=== PATIENT | female | born 1960 | race African-American/Black ===

== ENCOUNTER 2017-03-19 05:07 | Emergency (ER) | payer BC ==
[2017-03-19] MEDS: DOXYCYCLINE HYCLATE 100 MG TABLET PO (07:30)
== END 2017-03-19 07:34 | disposition home or self-care (01) ==
LOC: ER 05:07
DX: J18.9 Pneumonia, unspecified organism (principal); E11.9 Type 2 diabetes mellitus without complications; Z88.2 Allergy status to sulfonamides; Z88.6 Allergy status to analgesic agent; Z88.1 Allergy status to other antibiotic agents; Z88.8 Allergy status to other drugs, medicaments and biological substances
CPT/HCPCS: 71046; 99284-25

== ENCOUNTER 2020-09-15 15:52 | Inpatient (IN) | payer BC ==
[~2020-09-15] VITALS: Ht 160 cm; Wt 91.2 kg
[~2020-09-15 15:52] MED LIST: DOXY100C2 PO
[2020-09-15 16:42] LABS: BASO % 1 % (0-3); EOS # 0.3 x10^3/uL (0.0-0.7); EOS % 6 % (0-3); HEMATOCRIT 28.6 % (36.0-47.0); HEMOGLOBIN 9.8 g/dL (12.0-15.5); LYMPH # 1.6 x10^3/uL (1.0-4.8); LYMPH % 26 % (24-48); MEAN CORPUSCULAR HEMOGLOBIN 28 pg (25-35); MEAN CORPUSCULAR HGB CONC 34 g/dL (31-37); MEAN CORPUSCULAR VOLUME 82 fL (79-100); MONO # 0.4 x10^3/uL (0.0-1.1); MONO % 7 % (0-9); NEUT # 3.8 x10^3/uL (1.8-7.7); NEUT % 61 % (31-73); PLATELET COUNT 311 x10^3/uL (140-400); RED BLOOD COUNT 3.51 x10^6/uL (3.50-5.40); RED CELL DISTRIBUTION WIDTH 15.5 % (11.5-14.5); WHITE BLOOD COUNT 6.2 x10^3/uL (4.0-11.0)
--- NOTE | 2020-09-15 16:48 | ED.ADGEN ---
Past Medical History Past Medical History: Diabetes-Type II Past Surgical History: No Surgical History Smoking Status: Never Smoker Alcohol Use: None Drug Use: None General Adult EDM: Chief Complaint: ABNORMAL LABS HPI: HPI: Patient is a 60 year old female, accompanied by her , who presents to the emergency department with reports of abnormal labs. Patient states she was notified by her primary care doctor that her kidneys were only functioning at 7% and she needed to go to the ER for further evaluation. Patient denies any chest pain, palpitations, dizziness, syncope, abdominal pain, nausea, vomiting, diarrhea, body aches, fatigue, back pain, rash, dysuria, hematuria, or increased urinary frequency. Patient states she has not been urinating as much but she states she has been staying home so she has not been drinking as much fluid. She currently denies any complaints or concerns. She currently denies any pain. Patient states that her doctor faxed over her labs that were drawn on 08 September. Review of Systems: Review of Systems: Complete ROS is negative unless otherwise noted in HPI. Current Medications: Allergies: Allergies: Allergies Coded Allergies Type Severity Reaction Last Updated Verified aspirin Allergy Severe throat swelling 09/15/20 Yes Sulfa (Sulfonamide Antibiotics) Allergy Intermediate rash 09/15/20 Yes levofloxacin Allergy Intermediate rash 09/15/20 Yes aluminum hydroxide Adverse Reaction Intermediate stomach cramping, irritation 09/15/20 Yes calcium carbonate Adverse Reaction Intermediate stomach cramping 09/15/20 Yes lisinopril Adverse Reaction Intermediate cough 09/15/20 Yes magnesium Adverse Reaction Intermediate abd cramping 09/15/20 Yes magnesium carbonate Adverse Reaction Intermediate abd cramping 09/15/20 Yes simethicone Adverse Reaction Intermediate abd cramping 09/15/20 Yes Physical Exam: PE: See Above Constitutional: Well developed, well nourished, no acute distress, non-toxic appearance, obese. [] HENT: Normocephalic, atraumatic, bilateral external ears normal, nose normal. [] Eyes: PERRLA, EOMI, conjunctiva normal, no discharge. [] Neck: Normal range of motion, no stridor. [] Cardiovascular:Heart rate regular rhythm Lungs & Thorax: Respirations even and unlabored, no retractions, no respiratory distress Abdomen: soft, no tenderness, no palpable mass, no rebound tenderness, no guarding Back: No CVA tenderness Skin: Warm, dry, no erythema, no rash. [] Extremities: No cyanosis, ROM intact, no edema. [] Neurologic: Alert and oriented X 3, normal motor, normal sensory, no focal deficits noted. [] Psychologic: Affect normal, judgement normal, mood normal. [] Current Patient Data: Labs: Laboratory Tests Test 09/15/20 16:30 White Blood Count 6.2 x10^3/uL (4.0-11.0) Red Blood Count 3.51 x10^6/uL (3.50-5.40) Hemoglobin 9.8 g/dL (12.0-15.5) L Hematocrit 28.6 % (36.0-47.0) L Mean Corpuscular Volume 82 fL (79-100) Mean Corpuscular Hemoglobin 28 pg (25-35) Mean Corpuscular Hemoglobin Concent 34 g/dL (31-37) Red Cell Distribution Width 15.5 % (11.5-14.5) H Platelet Count 311 x10^3/uL (140-400) Neutrophils (%) (Auto) 61 % (31-73) Lymphocytes (%) (Auto) 26 % (24-48) Monocytes (%) (Auto) 7 % (0-9) Eosinophils (%) (Auto) 6 % (0-3) H Basophils (%) (Auto) 1 % (0-3) Neutrophils # (Auto) 3.8 x10^3/uL (1.8-7.7) Lymphocytes # (Auto) 1.6 x10^3/uL (1.0-4.8) Monocytes # (Auto) 0.4 x10^3/uL (0.0-1.1) Eosinophils # (Auto) 0.3 x10^3/uL (0.0-0.7) Basophils # (Auto) 0.0 x10^3/uL (0.0-0.2) Sodium Level 139 mmol/L (136-145) Potassium Level 5.2 mmol/L (3.5-5.1) H Chloride Level 108 mmol/L (98-107) H Carbon Dioxide Level 21 mmol/L (21-32) Anion Gap 10 (6-14) Blood Urea Nitrogen 52 mg/dL (7-20) H Creatinine 6.4 mg/dL (0.6-1.0) H Estimated GFR (Cockcroft-Gault) 8.0 BUN/Creatinine Ratio 8 (6-20) Glucose Level 117 mg/dL (70-99) H Calcium Level 9.3 mg/dL (8.5-10.1) Magnesium Level 2.3 mg/dL (1.8-2.4) Total Bilirubin 0.6 mg/dL (0.2-1.0) Aspartate Amino Transferase (AST) 12 U/L (15-37) L Alanine Aminotransferase (ALT) 22 U/L (14-59) Alkaline Phosphatase 132 U/L (46-116) H Creatine Kinase 82 U/L (26-192) Creatine Kinase MB (Mass) 1.0 ng/mL (0.0-3.6) Creatine Kinase MB Relative Index 1.2 % (0-4) Troponin I Quantitative < 0.017 ng/mL (0.000-0.055) Total Protein 7.5 g/dL (6.4-8.2) Albumin 3.5 g/dL (3.4-5.0) Albumin/Globulin Ratio 0.9 (1.0-1.7) L Lipase 376 U/L (73-393) Laboratory Tests 09/15/20 16:30 Laboratory Tests 09/15/20 16:30 Vital Signs: Vital Signs Date Time Temp Pulse Resp B/P (MAP) Pulse Ox O2 Delivery O2 Flow Rate FiO2 09/15/20 16:06 99.1 91 18 139/82 (100) 100 Room Air 99.1 EKG: EK-sinus rhythm with leftward axis, rate 87, no STEMI read by Dr. Magaña [] Heart Score: C/O Chest Pain: No Radiology/Procedures: Radiology/Procedures: PROCEDURE: CHEST AP ONLY EXAMINATION: Chest radiograph. VIEWS: Single view COMPARISON: 03/19/2017 INDICATION:60 years, Female, chest pain. FINDINGS: Normal cardiomediastinal silhouette. No focal consolidation. No pleural effusion or pneumothorax. No acute osseous process. IMPRESSION: No acute cardiopulmonary process. Electronically signed by: Samson Novak MD (09/15/2020 5:15 PM) [facility] [] Course & Med Decision Making: Course & Med Decision Making Pertinent Labs and Imaging studies reviewed. (See chart for details) 180-spoke with Dr. Cannon who is the admitting physician, and care was assumed following discussion of patient. Will admit patient for acute on chronic renal failure. Patient's vital signs stable_. Patient remains afebrile, appears nontoxic, respirations even and unlabored. Patient will be admitted to the medical floor. Patient's case and plan of care also discussed with Dr. Magaña [] Carlos Disclaimer: Carlos Disclaimer: This electronic medical record was generated, in whole or in part, using a voice recognition dictation system. Departure Departure Impression: Primary Impression: Acute on chronic renal failure Disposition: ADMITTED INPATIENT Admitting Physician: FRANCISCA (Kassandra) Condition: STABLE Referrals: KILLIAN BLACKMON (PCP) Attending Signature Attending Signature I have reviewed the PA/CODE CLERK's note and plan of care. I was available for consultation as needed during the patient's visit in the emergency department. I agree with the clinical impression, plan, and disposition. Problem Qualifiers Primary Impression: Acute on chronic renal failure Acute renal failure type: unspecified Chronic kidney disease stage: unspecified stage Qualified Codes: N17.9 - Acute kidney failure, unspecified; N18.9 - Chronic kidney disease, unspecified SIRI WANG APRN Sep 15, 2020 16:48 PASCUAL MAGAÑA DO Sep 15, 2020 18:55
[2020-09-15 16:57] LABS: CALCIUM 9.3 mg/dL (8.5-10.1); CREATININE 6.4 mg/dL (0.6-1.0); POTASSIUM 5.2 mmol/L (3.5-5.1)
[2020-09-15 17:03] LABS: ALBUMIN 3.5 g/dL (3.4-5.0); ALBUMIN/GLOBULIN RATIO 0.9 (1.0-1.7); MAGNESIUM 2.3 mg/dL (1.8-2.4); TOTAL BILIRUBIN 0.6 mg/dL (0.2-1.0); TOTAL PROTEIN 7.5 g/dL (6.4-8.2)
--- NOTE | 2020-09-15 17:18 | RAD ---
EXAMINATION: Chest radiograph. VIEWS: Single view COMPARISON: 03/19/2017 INDICATION:60 years, Female, chest pain. FINDINGS: Normal cardiomediastinal silhouette. No focal consolidation. No pleural effusion or pneumothorax. No acute osseous process. IMPRESSION: No acute cardiopulmonary process. Electronically signed by: Samson Novak MD (09/15/2020 5:15 PM) [facility]
--- NOTE | 2020-09-15 17:31 | EKG ---
[facility] [address] [place] [address] Test Date: 2020-09-15 Test Time: 16:23:05 Pat Name: CHERRY PLATA Department: Room: Gender: F Imaging Analyst: : 1960 Requested By: SIRI WANG Order Number: [id number] Reading MD: Measurements Intervals [place] Rate: 87 P: 31 CA: 164 QRS: -11 QRSD: 74 T: 42 QT: 352 QTc: 424 Interpretive Statements SINUS RHYTHM LEFTWARD AXIS OTHERWISE NORMAL ECG RI6.02 No previous ECG available for comparison
[2020-09-15] MEDS ORDERED: IV NORMAL SALINE 1000ML BAG 1,000 ML IV ONE (18:15)
[2020-09-15 20:22] LABS: BILIRUBIN,URINE NEGATIVE (NEG); CLARITY,URINE CLEAR; COLOR,URINE YELLOW; NITRITE,URINE NEGATIVE (NEG); PH,URINE 6.5 (<5.0-8.0); PROTEIN,URINE >=300 mg/dL (NEG-TRACE); UROBILINOGEN,URINE 0.2 mg/dL (0.2 mg/dL)
[2020-09-15 20:27] LABS: BACTERIA,URINE MODERATE /HPF (0-FEW); RBC,URINE 0 /HPF (0-2); WBC,URINE 20-40 /HPF (0-4)
[2020-09-15 23:00] VITALS: BP 154/78
[2020-09-15] MEDS ORDERED: ALBU2.5V8 IH (23:35)
[2020-09-15] MEDS ORDERED: CETI10TA16 PO (23:35)
[2020-09-15] MEDS ORDERED: LOSA100T14 PO (23:35)
[2020-09-15] MEDS ORDERED: SITA50TA PO (23:35)
[2020-09-15] MEDS ORDERED: AMLO-187 PO (23:35)
[2020-09-15] MEDS ORDERED: ATOR20TA58 PO (23:35)
[2020-09-16] MEDS ORDERED: ALBUTEROL SULFATE 2.5 MG/3 ML NEBU. INH PRN
[2020-09-16 03:00] VITALS: BP 133/79
[2020-09-16 07:00] VITALS: BP 161/92
--- NOTE | 2020-09-16 08:55 | PDOC1 ---
History and Physical Date of Service: DOS: DATE: 09/16/20 TIME: 08:46 Chief Complaint: Chief Complain: Abnormal labs History of Present Illness: HPI: 60 year old female, accompanied by her , who presents to the emergency department with reports of abnormal labs. Patient states she was notified by her primary care doctor that her kidneys were only functioning at 7% and she needed to go to the ER for further evaluation. Patient denies any chest pain, palpitations, dizziness, syncope, abdominal pain, nausea, vomiting, diarrhea, body aches, fatigue, back pain, rash, dysuria, hematuria, or increased urinary frequency. Patient states she has not been urinating as much but she states she has been staying home so she has not been drinking as much fluid. She currently denies any complaints or concerns. She currently denies any pain. Patient states that her doctor faxed over her labs that were drawn on 08 September. Pateitn states she knows she has retinopathy. She knew her kidney fxn was bad but did not know that it had worsened Past Medical/Surgical History: PMH/PSH: Past Medical History: Diabetes-Type II Past Surgical History: No Surgical History Allergies: Allergies: Coded Allergies: aspirin (Verified Allergy, Severe, throat swelling, 09/15/20) Sulfa (Sulfonamide Antibiotics) (Verified Allergy, Intermediate, rash, 09/15/20) levofloxacin (Verified Allergy, Intermediate, rash, 09/15/20) aluminum hydroxide (Verified Adverse Reaction, Intermediate, stomach cramping, irritation, 09/15/20) calcium carbonate (Verified Adverse Reaction, Intermediate, stomach cramping, 09/15/20) lisinopril (Verified Adverse Reaction, Intermediate, cough, 09/15/20) magnesium (Verified Adverse Reaction, Intermediate, abd cramping, 09/15/20) magnesium carbonate (Verified Adverse Reaction, Intermediate, abd cramping, 09/15/20) simethicone (Verified Adverse Reaction, Intermediate, abd cramping, 09/15/20) Family History: Family History: Reviewed with no relevant findings Social History: Social History: Smoking Status: Never Smoker Alcohol Use: None Drug Use: None Current Medications: Current Medications Current Medications Sodium Chloride 1,000 ml @ 1,000 mls/hr 1X ONCE IV Last administered on 09/15/20at 18:23; Start 09/15/20 at 18:15; Stop 09/15/20 at 19:14; Status DC Albuterol Sulfate (Ventolin Neb Soln) 2.5 mg PRN Q4HRS PRN INH wheezing; Start 09/16/20 at 00:00 Amlodipine Besylate (Norvasc) 10 mg DAILY PO ; Start 09/16/20 at 09:00 Atorvastatin Calcium (Lipitor) 20 mg HS PO ; Start 09/16/20 at 21:00 Cetirizine HCl (ZyrTEC) 10 mg DAILY PO ; Start 09/16/20 at 09:00 Losartan Potassium (Cozaar) 100 mg DAILY PO ; Start 09/16/20 at 09:00 Linagliptin (Tradjenta) 5 mg DAILY PO ; Start 09/16/20 at 09:00 Active Scripts Active Doxycycline Hyclate 100 Mg Capsule 1 Cap PO BID Reported Januvia (Sitagliptin Phosphate) 50 Mg Tablet 25 Mg PO DAILY Losartan Potassium 100 Mg Tablet 100 Mg PO DAILY Cetirizine Hcl 10 Mg Tablet 10 Mg PO DAILY Atorvastatin Calcium 20 Mg Tablet 20 Mg PO HS Amlodipine Besylate 10 Mg Tablet 10 Mg PO DAILY Proair Hfa Inhaler (Albuterol Sulfate) 8.5 Gm Hfa.aer.ad 2 Puff IH PRN Q4-6HRS PRN 21 Days ROS: Review of Systems Review of System REVIEW OF SYSTEMS: GENERAL: Denies weakness SKIN: No bruising, hair changes or rashes. EYES: No blurred, double or loss of vision. NOSE AND THROAT: No history of nosebleeds, hoarseness or sore throat. HEART: No history of palpitations, chest pain or shortness of breath on exertion. LUNGS: Denies cough, hemoptysis, wheezing or shortness of breath. GASTROINTESTINAL: Denies changes in appetite, nausea, vomiting, diarrhea or constipation. GENITOURINARY: No history of frequency, urgency, hesitancy or nocturia. NEUROLOGIC: Denies history of numbness, tingling, or tremor. PSYCHIATRIC: No history of panic, anxiety or depression. ENDOCRINE: No history of heat or cold intolerance, polyuria or polydipsia. EXTREMITIES: Denies joint pain, pain on walking or stiffness. Physical Exam: Vital Signs: Vital Signs Date Time Temp Pulse Resp B/P (MAP) Pulse Ox O2 Delivery O2 Flow Rate FiO2 09/16/20 03:00 98.1 86 18 133/79 (97) 100 Room Air 98.1 Physcial Exam: GEN: No apparent distress. Alert and oriented HEENT: Normal cephalic, atraumatic, external auditory canals are patent EYES: Extraocular muscles are intact, pupil are equally round and reactive to light and accommodation MUSCULOSKELETAL: Well developed , well nourished, good range of motion ENDOCRINE: No thyromegaly was palpated LYMPHATICS: No cervical chain or axillary nodes were noted HEMATOPOIETIC: No bruising NECK: Supple, no JVD, no thyromegaly was noted LUNGS: Clear to auscultation in all lung malik without rhonchi or wheezing HEART: RRR, S!, S2 present. Peripheral pulses intact, no obvious murmurs noted ABDOMEN: Soft, nontender. Positive bowel sounds, no organomegaly, normal bowel sounds EXTREMITIES: Without clubbing, cyanosis, or edema. Pedal pulses intact. Negative Homans sign NEUROLOGIC: Normal speech and tone. A&O x 3, moves all extremities, no obvious focal deficits PSYCHIATRIC: Normal affect, normal mood. Stable SKIN: No ulcerations or rashes, good skin turgor, no jaundice VASCULAR: Good capillary refill, neurovascular bundle appears to be intact Labs: Labs: Laboratory Tests Test 09/15/20 16:30 09/15/20 20:10 09/15/20 21:42 09/16/20 08:08 White Blood Count 6.2 x10^3/uL (4.0-11.0) Red Blood Count 3.51 x10^6/uL (3.50-5.40) Hemoglobin 9.8 g/dL (12.0-15.5) Hematocrit 28.6 % (36.0-47.0) Mean Corpuscular Volume 82 fL (79-100) Mean Corpuscular Hemoglobin 28 pg (25-35) Mean Corpuscular Hemoglobin Concent 34 g/dL (31-37) Red Cell Distribution Width 15.5 % (11.5-14.5) Platelet Count 311 x10^3/uL (140-400) Neutrophils (%) (Auto) 61 % (31-73) Lymphocytes (%) (Auto) 26 % (24-48) Monocytes (%) (Auto) 7 % (0-9) Eosinophils (%) (Auto) 6 % (0-3) Basophils (%) (Auto) 1 % (0-3) Neutrophils # (Auto) 3.8 x10^3/uL (1.8-7.7) Lymphocytes # (Auto) 1.6 x10^3/uL (1.0-4.8) Monocytes # (Auto) 0.4 x10^3/uL (0.0-1.1) Eosinophils # (Auto) 0.3 x10^3/uL (0.0-0.7) Basophils # (Auto) 0.0 x10^3/uL (0.0-0.2) Sodium Level 139 mmol/L (136-145) Potassium Level 5.2 mmol/L (3.5-5.1) Chloride Level 108 mmol/L (98-107) Carbon Dioxide Level 21 mmol/L (21-32) Anion Gap 10 (6-14) Blood Urea Nitrogen 52 mg/dL (7-20) Creatinine 6.4 mg/dL (0.6-1.0) Estimated GFR (Cockcroft-Gault) 8.0 BUN/Creatinine Ratio 8 (6-20) Glucose Level 117 mg/dL (70-99) Calcium Level 9.3 mg/dL (8.5-10.1) Magnesium Level 2.3 mg/dL (1.8-2.4) Total Bilirubin 0.6 mg/dL (0.2-1.0) Aspartate Amino Transf (AST/SGOT) 12 U/L (15-37) Alanine Aminotransferase (ALT/SGPT) 22 U/L (14-59) Alkaline Phosphatase 132 U/L (46-116) Creatine Kinase 82 U/L (26-192) Creatine Kinase MB (Mass) 1.0 ng/mL (0.0-3.6) Creatine Kinase MB Relative Index 1.2 % (0-4) Troponin I Quantitative < 0.017 ng/mL (0.000-0.055) Total Protein 7.5 g/dL (6.4-8.2) Albumin 3.5 g/dL (3.4-5.0) Albumin/Globulin Ratio 0.9 (1.0-1.7) Lipase 376 U/L (73-393) Urine Collection Type Unknown Urine Color Yellow Urine Clarity Clear Urine pH 6.5 (<5.0-8.0) Urine Specific [place] 1.010 (1.000-1.030) Urine Protein >=300 mg/dL (NEG-TRACE) Urine Glucose (UA) Negative mg/dL (NEG) Urine Ketones (Stick) Negative mg/dL (NEG) Urine Blood Trace (NEG) Urine Nitrite Negative (NEG) Urine Bilirubin Negative (NEG) Urine Urobilinogen Dipstick 0.2 mg/dL (0.2 mg/dL) Urine Leukocyte Esterase Small (NEG) Urine RBC 0 /HPF (0-2) Urine WBC 20-40 /HPF (0-4) Urine Squamous Epithelial Cells Mod /LPF Urine Bacteria Moderate /HPF (0-FEW) Glucose (Fingerstick) 78 mg/dL (70-99) 86 mg/dL (70-99) Laboratory Tests Test 09/15/20 16:30 09/15/20 20:10 09/15/20 21:42 09/16/20 08:08 White Blood Count 6.2 x10^3/uL (4.0-11.0) Red Blood Count 3.51 x10^6/uL (3.50-5.40) Hemoglobin 9.8 g/dL (12.0-15.5) Hematocrit 28.6 % (36.0-47.0) Mean Corpuscular Volume 82 fL (79-100) Mean Corpuscular Hemoglobin 28 pg (25-35) Mean Corpuscular Hemoglobin Concent 34 g/dL (31-37) Red Cell Distribution Width 15.5 % (11.5-14.5) Platelet Count 311 x10^3/uL (140-400) Neutrophils (%) (Auto) 61 % (31-73) Lymphocytes (%) (Auto) 26 % (24-48) Monocytes (%) (Auto) 7 % (0-9) Eosinophils (%) (Auto) 6 % (0-3) Basophils (%) (Auto) 1 % (0-3) Neutrophils # (Auto) 3.8 x10^3/uL (1.8-7.7) Lymphocytes # (Auto) 1.6 x10^3/uL (1.0-4.8) Monocytes # (Auto) 0.4 x10^3/uL (0.0-1.1) Eosinophils # (Auto) 0.3 x10^3/uL (0.0-0.7) Basophils # (Auto) 0.0 x10^3/uL (0.0-0.2) Sodium Level 139 mmol/L (136-145) Potassium Level 5.2 mmol/L (3.5-5.1) Chloride Level 108 mmol/L (98-107) Carbon Dioxide Level 21 mmol/L (21-32) Anion Gap 10 (6-14) Blood Urea Nitrogen 52 mg/dL (7-20) Creatinine 6.4 mg/dL (0.6-1.0) Estimated GFR (Cockcroft-Gault) 8.0 BUN/Creatinine Ratio 8 (6-20) Glucose Level 117 mg/dL (70-99) Calcium Level 9.3 mg/dL (8.5-10.1) Magnesium Level 2.3 mg/dL (1.8-2.4) Total Bilirubin 0.6 mg/dL (0.2-1.0) Aspartate Amino Transf (AST/SGOT) 12 U/L (15-37) Alanine Aminotransferase (ALT/SGPT) 22 U/L (14-59) Alkaline Phosphatase 132 U/L (46-116) Creatine Kinase 82 U/L (26-192) Creatine Kinase MB (Mass) 1.0 ng/mL (0.0-3.6) Creatine Kinase MB Relative Index 1.2 % (0-4) Troponin I Quantitative < 0.017 ng/mL (0.000-0.055) Total Protein 7.5 g/dL (6.4-8.2) Albumin 3.5 g/dL (3.4-5.0) Albumin/Globulin Ratio 0.9 (1.0-1.7) Lipase 376 U/L (73-393) Urine Collection Type Unknown Urine Color Yellow Urine Clarity Clear Urine pH 6.5 (<5.0-8.0) Urine Specific [place] 1.010 (1.000-1.030) Urine Protein >=300 mg/dL (NEG-TRACE) Urine Glucose (UA) Negative mg/dL (NEG) Urine Ketones (Stick) Negative mg/dL (NEG) Urine Blood Trace (NEG) Urine Nitrite Negative (NEG) Urine Bilirubin Negative (NEG) Urine Urobilinogen Dipstick 0.2 mg/dL (0.2 mg/dL) Urine Leukocyte Esterase Small (NEG) Urine RBC 0 /HPF (0-2) Urine WBC 20-40 /HPF (0-4) Urine Squamous Epithelial Cells Mod /LPF Urine Bacteria Moderate /HPF (0-FEW) Glucose (Fingerstick) 78 mg/dL (70-99) 86 mg/dL (70-99) Images: Images CXR Impression: 1. No acute cardiopulmonary process. Assessment/Plan Assessment/Plan TONNY due to vasomotor nephropathy, possible diabetic nephropathy Mild hyperkalemia History of diabetes mellitus type 2 Admit to medicine for further management Nephrology consult Pending renal ultrasound Pending urine studies Avoid nephrotoxic agents, such as losartan in this case Heparin for DVT prophylaxis ADA diet Full code Discussed with RN and SW Disposition Inpateitn management as above Surrogate decision maker is In addition to E/M visit, advanced care planning was done: A total time of 20 minutes was spent from 1130 to 1150 face to face in discussion with the patient and husaband regarding their goals of care, and CODE status Justifications for Admission Other Justification KILEY ERWIN MD Sep 16, 2020 08:55
[2020-09-16] MEDS: CETIRIZINE HCL 10 MG TABLET. PO SCH (08:56)
[2020-09-16] MEDS: LINAGLIPTIN 5 MG TABLET PO SCH (08:56)
[2020-09-16] MEDS ORDERED: DOCUSATE SODIUM 100 MG CAPSULE. PO PRN (09:00)
[2020-09-16] MEDS ORDERED: LOSARTAN POTASSIUM 50 MG TABLET. PO SCH (09:00)
[2020-09-16] MEDS ORDERED: PROCHLORPERAZINE 10 MG/2 ML VIAL. IV PRN (09:00)
[2020-09-16] MEDS ORDERED: SENNOSIDES 8.6 MG TABLET PO PRN (09:00)
[2020-09-16] MEDS ORDERED: DEXTROSE 50% 25 GM / 50ML DISP.SYRIN. IV PRN (09:00)
[2020-09-16] MEDS ORDERED: ACETAMINOPHEN 325 MG TABLET. PO PRN (09:00)
[2020-09-16] MEDS ORDERED: ONDANSETRON PF 4 MG/2 ML VIAL. IVP PRN (09:00)
[2020-09-16] MEDS ORDERED: THIAMINE INJ 100 MG in IV DEXTROSE 5% 50 ML IV SCH (10:00)
[2020-09-16 11:00] VITALS: BP 171/100
[2020-09-16] MEDS: INSULIN LISPRO 300 UNITS/3 ML VIAL. SQ SCH ×2 (11:54→17:00)
[2020-09-16] MEDS ORDERED: CARB15DR3 EACHEYE (12:44)
[2020-09-16] MEDS ORDERED: REFRESH EYE DROPS OU PRN (13:00)
[2020-09-16] MEDS ORDERED: POLYVINYL ALCOHOL 1.4% OPHTH SOLUTION 15ML BOTTLE. OU PRN (13:00)
[2020-09-16 15:00] VITALS: BP 163/88
--- NOTE | 2020-09-16 15:32 | PDOC2 ---
CONSULT Date of Consult Date of Consult DATE: 09/16/20 TIME: 15:32 Reason for Consult Reason for Consult: TONNY on CKD Source Source: Chart review, Patient History of Present Illness Reason for Visit: 60 year old aa female, who presents to the emergency department with reports of abnormal labs. Patient states she was notified by her primary care doctor that her kidneys were only functioning at 7% and she needed to go to the ER for further evaluation. Patient denies any chest pain, palpitations, dizziness, syncope, abdominal pain, nausea, vomiting, diarrhea, body aches, fatigue, back pain, rash, dysuria, hematuria, or increased urinary frequency. Patient states she has not been urinating as much but she states she has been staying home so she has not been drinking as much fluid. She currently denies any complaints or concerns. She currently denies any pain. Patient states that her doctor faxed over her labs that were drawn on 08 September. Patient states she knows she has retinopathy. She knew her kidney fxn was bad but did not know that it had worsened. Past Medical History Past Medical History PMH/PSH: Past Medical History: Diabetes-Type II Past Surgical History: No Surgical History , Family History Family History Reviewed with no relevant findings Social History Social History Smoking Status: Never Smoker Alcohol Use: None Drug Use: None Current Problem List Problem List Problems Medical Problems: (1) Acute on chronic renal failure Status: Acute Current Medications Current Medications Current Medications Sodium Chloride 1,000 ml @ 1,000 mls/hr 1X ONCE IV Last administered on 09/15/20at 18:23; Start 09/15/20 at 18:15; Stop 09/15/20 at 19:14; Status DC Albuterol Sulfate (Ventolin Neb Soln) 2.5 mg PRN Q4HRS PRN INH wheezing; Start 09/16/20 at 00:00 Amlodipine Besylate (Norvasc) 10 mg DAILY PO Last administered on 09/16/20at 08:57; Start 09/16/20 at 09:00 Atorvastatin Calcium (Lipitor) 20 mg HS PO ; Start 09/16/20 at 21:00 Cetirizine HCl (ZyrTEC) 10 mg DAILY PO Last administered on 09/16/20at 08:56; Start 09/16/20 at 09:00 Losartan Potassium (Cozaar) 100 mg DAILY PO Last administered on 09/16/20at 08:57; Start 09/16/20 at 09:00 Linagliptin (Tradjenta) 5 mg DAILY PO Last administered on 09/16/20at 08:56; Start 09/16/20 at 09:00 Sennosides (Senna) 17.2 mg PRN BID PRN PO CONSTIPATION; Start 09/16/20 at 09:00 Docusate Sodium (Colace) 100 mg PRN DAILY PRN PO HARD STOOLS; Start 09/16/20 at 09:00 Thiamine HCl 100 mg/Dextrose 51 ml @ 102 mls/hr DAILY IV Last administered on 09/16/20at 09:42; Start 09/16/20 at 10:00 Ondansetron HCl (Zofran) 4 mg PRN Q6HRS PRN IVP NAUSEA/VOMITING; Start 09/16/20 at 09:00 Insulin Human Lispro (HumaLOG) 0-7 UNITS TIDWMEALS SQ ; Start 09/16/20 at 12:00 Dextrose (Dextrose 50%-Water Syringe) 12.5 gm PRN Q15MIN PRN IV SEE COMMENTS; Start 09/16/20 at 09:00 Acetaminophen (Tylenol) 650 mg PRN Q4HRS PRN PO TEMP OVER 100.4F OR MILD PAIN; Start 09/16/20 at 09:00 Prochlorperazine Edisylate (Compazine) 10 mg PRN Q6HRS PRN IV NAUSEA/VOMITING, 2ND CHOICE; Start 09/16/20 at 09:00 Glycerin/ Hypromellose/ Polyethylene (Artificial Tears) 1 drop DAILY PRN OU DRY EYES; Start 09/16/20 at 13:00; Stop 09/16/20 at 12:53; Status DC Non-Formulary Medication (Refresh Eye Drops) 1 ea PRN DAILY PRN OU DRY EYES; Start 09/16/20 at 13:00 Active Scripts Active Doxycycline Hyclate 100 Mg Capsule 1 Cap PO BID Reported Refresh Optive Eye Drops (Carboxymethylcellulos/Glycerin) 15 Ml Drops 1 Drop EACHEYE DAILY Januvia (Sitagliptin Phosphate) 50 Mg Tablet 25 Mg PO DAILY Losartan Potassium 100 Mg Tablet 100 Mg PO DAILY Cetirizine Hcl 10 Mg Tablet 10 Mg PO DAILY Atorvastatin Calcium 20 Mg Tablet 20 Mg PO HS Amlodipine Besylate 10 Mg Tablet 10 Mg PO DAILY Proair Hfa Inhaler (Albuterol Sulfate) 8.5 Gm Hfa.aer.ad 2 Puff IH PRN Q4-6HRS PRN 21 Days Allergies Allergies: Coded Allergies: aspirin (Verified Allergy, Severe, throat swelling, 09/15/20) Sulfa (Sulfonamide Antibiotics) (Verified Allergy, Intermediate, rash, 09/15/20) levofloxacin (Verified Allergy, Intermediate, rash, 09/15/20) aluminum hydroxide (Verified Adverse Reaction, Intermediate, stomach cram ping, irritation, 09/15/20) calcium carbonate (Verified Adverse Reaction, Intermediate, stomach cramping, 09/15/20) lisinopril (Verified Adverse Reaction, Intermediate, cough, 09/15/20) magnesium (Verified Adverse Reaction, Intermediate, abd cramping, 09/15/20) magnesium carbonate (Verified Adverse Reaction, Intermediate, abd cramping, 09/15/20) simethicone (Verified Adverse Reaction, Intermediate, abd cramping, 09/15/20) ROS Review of System As per HPI, rest of the ROS IS NEGATIVE Physical Exam Physical Exam GEN: No apparent distress. Alert and oriented HEENT: Normal cephalic, atraumatic, external auditory canals are patent NECK: Supple, no JVD, LUNGS: Clear to auscultation HEART: RRR, S!, S2 present. no rub ABDOMEN: Soft, nontender. Positive bowel sounds, no organomegaly, normal bowel sounds EXTREMITIES: Without clubbing, cyanosis, or edema. NEUROLOGIC: Normal speech and tone. A&O x 3, moves all extremities, no obvious focal deficits,has No Asterexis PSYCHIATRIC: Normal affect, normal mood. Stable SKIN: No ulcerations or rashes, good skin turgor, no jaundice No Lovell, No CVA or SP tenderness Vital Signs Vital Signs Date Time Temp Pulse Resp B/P (MAP) Pulse Ox O2 Delivery O2 Flow Rate FiO2 09/16/20 11:00 98.2 78 18 171/100 (123) 99 Room Air 98.2 Assessment & Plan TONNY - ATN / Dehydration , baseline renal function Unknown to me. No labs ordered this morning . Recd Losartan this morning (ordered by Primary) Check Renal US, Supportive care, IVF- maintain hydration, dc Losartan , Strict I/O , avoid Nephrotoxins.Obtain records feom PCP office. Discussed with RN CKD - Pt reports she was told by PCP about abnormal Kidney function for at least past few years, Nephrology not consuted until approx 1 week back 2/2 decline in renal function Denies UTI's or hematuria . No Hx of use of NSAID's. No new med changes HyperKalemia - Mild POA- No labs done this morning DM-? Hx of DR + Labs Labs Laboratory Tests Test 09/15/20 16:30 09/15/20 20:10 09/15/20 21:42 09/16/20 08:08 White Blood Count 6.2 x10^3/uL (4.0-11.0) Red Blood Count 3.51 x10^6/uL (3.50-5.40) Hemoglobin 9.8 g/dL (12.0-15.5) Hematocrit 28.6 % (36.0-47.0) Mean Corpuscular Volume 82 fL (79-100) Mean Corpuscular Hemoglobin 28 pg (25-35) Mean Corpuscular Hemoglobin Concent 34 g/dL (31-37) Red Cell Distribution Width 15.5 % (11.5-14.5) Platelet Count 311 x10^3/uL (140-400) Neutrophils (%) (Auto) 61 % (31-73) Lymphocytes (%) (Auto) 26 % (24-48) Monocytes (%) (Auto) 7 % (0-9) Eosinophils (%) (Auto) 6 % (0-3) Basophils (%) (Auto) 1 % (0-3) Neutrophils # (Auto) 3.8 x10^3/uL (1.8-7.7) Lymphocytes # (Auto) 1.6 x10^3/uL (1.0-4.8) Monocytes # (Auto) 0.4 x10^3/uL (0.0-1.1) Eosinophils # (Auto) 0.3 x10^3/uL (0.0-0.7) Basophils # (Auto) 0.0 x10^3/uL (0.0-0.2) Sodium Level 139 mmol/L (136-145) Potassium Level 5.2 mmol/L (3.5-5.1) Chloride Level 108 mmol/L (98-107) Carbon Dioxide Level 21 mmol/L (21-32) Anion Gap 10 (6-14) Blood Urea Nitrogen 52 mg/dL (7-20) Creatinine 6.4 mg/dL (0.6-1.0) Estimated GFR (Cockcroft-Gault) 8.0 BUN/Creatinine Ratio 8 (6-20) Glucose Level 117 mg/dL (70-99) Calcium Level 9.3 mg/dL (8.5-10.1) Magnesium Level 2.3 mg/dL (1.8-2.4) Total Bilirubin 0.6 mg/dL (0.2-1.0) Aspartate Amino Transf (AST/SGOT) 12 U/L (15-37) Alanine Aminotransferase (ALT/SGPT) 22 U/L (14-59) Alkaline Phosphatase 132 U/L (46-116) Creatine Kinase 82 U/L (26-192) Creatine Kinase MB (Mass) 1.0 ng/mL (0.0-3.6) Creatine Kinase MB Relative Index 1.2 % (0-4) Troponin I Quantitative < 0.017 ng/mL (0.000-0.055) Total Protein 7.5 g/dL (6.4-8.2) Albumin 3.5 g/dL (3.4-5.0) Albumin/Globulin Ratio 0.9 (1.0-1.7) Lipase 376 U/L (73-393) Urine Collection Type Unknown Urine Color Yellow Urine Clarity Clear Urine pH 6.5 (<5.0-8.0) Urine Specific [place] 1.010 (1.000-1.030) Urine Protein >=300 mg/dL (NEG-TRACE) Urine Glucose (UA) Negative mg/dL (NEG) Urine Ketones (Stick) Negative mg/dL (NEG) Urine Blood Trace (NEG) Urine Nitrite Negative (NEG) Urine Bilirubin Negative (NEG) Urine Urobilinogen Dipstick 0.2 mg/dL (0.2 mg/dL) Urine Leukocyte Esterase Small (NEG) Urine RBC 0 /HPF (0-2) Urine WBC 20-40 /HPF (0-4) Urine Squamous Epithelial Cells Mod /LPF Urine Bacteria Moderate /HPF (0-FEW) Glucose (Fingerstick) 78 mg/dL (70-99) 86 mg/dL (70-99) Test 09/16/20 11:39 Glucose (Fingerstick) 121 mg/dL (70-99) Laboratory Tests Test 09/15/20 16:30 09/15/20 20:10 09/15/20 21:42 09/16/20 08:08 White Blood Count 6.2 x10^3/uL (4.0-11.0) Red Blood Count 3.51 x10^6/uL (3.50-5.40) Hemoglobin 9.8 g/dL (12.0-15.5) Hematocrit 28.6 % (36.0-47.0) Mean Corpuscular Volume 82 fL (79-100) Mean Corpuscular Hemoglobin 28 pg (25-35) Mean Corpuscular Hemoglobin Concent 34 g/dL (31-37) Red Cell Distribution Width 15.5 % (11.5-14.5) Platelet Count 311 x10^3/uL (140-400) Neutrophils (%) (Auto) 61 % (31-73) Lymphocytes (%) (Auto) 26 % (24-48) Monocytes (%) (Auto) 7 % (0-9) Eosinophils (%) (Auto) 6 % (0-3) Basophils (%) (Auto) 1 % (0-3) Neutrophils # (Auto) 3.8 x10^3/uL (1.8-7.7) Lymphocytes # (Auto) 1.6 x10^3/uL (1.0-4.8) Monocytes # (Auto) 0.4 x10^3/uL (0.0-1.1) Eosinophils # (Auto) 0.3 x10^3/uL (0.0-0.7) Basophils # (Auto) 0.0 x10^3/uL (0.0-0.2) Sodium Level 139 mmol/L (136-145) Potassium Level 5.2 mmol/L (3.5-5.1) Chloride Level 108 mmol/L (98-107) Carbon Dioxide Level 21 mmol/L (21-32) Anion Gap 10 (6-14) Blood Urea Nitrogen 52 mg/dL (7-20) Creatinine 6.4 mg/dL (0.6-1.0) Estimated GFR (Cockcroft-Gault) 8.0 BUN/Creatinine Ratio 8 (6-20) Glucose Level 117 mg/dL (70-99) Calcium Level 9.3 mg/dL (8.5-10.1) Magnesium Level 2.3 mg/dL (1.8-2.4) Total Bilirubin 0.6 mg/dL (0.2-1.0) Aspartate Amino Transf (AST/SGOT) 12 U/L (15-37) Alanine Aminotransferase (ALT/SGPT) 22 U/L (14-59) Alkaline Phosphatase 132 U/L (46-116) Creatine Kinase 82 U/L (26-192) Creatine Kinase MB (Mass) 1.0 ng/mL (0.0-3.6) Creatine Kinase MB Relative Index 1.2 % (0-4) Troponin I Quantitative < 0.017 ng/mL (0.000-0.055) Total Protein 7.5 g/dL (6.4-8.2) Albumin 3.5 g/dL (3.4-5.0) Albumin/Globulin Ratio 0.9 (1.0-1.7) Lipase 376 U/L (73-393) Urine Collection Type Unknown Urine Color Yellow Urine Clarity Clear Urine pH 6.5 (<5.0-8.0) Urine Specific [place] 1.010 (1.000-1.030) Urine Protein >=300 mg/dL (NEG-TRACE) Urine Glucose (UA) Negative mg/dL (NEG) Urine Ketones (Stick) Negative mg/dL (NEG) Urine Blood Trace (NEG) Urine Nitrite Negative (NEG) Urine Bilirubin Negative (NEG) Urine Urobilinogen Dipstick 0.2 mg/dL (0.2 mg/dL) Urine Leukocyte Esterase Small (NEG) Urine RBC 0 /HPF (0-2) Urine WBC 20-40 /HPF (0-4) Urine Squamous Epithelial Cells Mod /LPF Urine Bacteria Moderate /HPF (0-FEW) Glucose (Fingerstick) 78 mg/dL (70-99) 86 mg/dL (70-99) Test 09/16/20 11:39 Glucose (Fingerstick) 121 mg/dL (70-99) Review All relevant outside records, renal labs, imaging studies, telemetry/EKG's were reviewed. LIDA FRIEDMAN MD Sep 16, 2020 15:32
[2020-09-16] MEDS: IV NORMAL SALINE 1000ML BAG 1,000 ML IV SCH ×2 (15:43→22:23)
[2020-09-16 18:44] LABS: CREATININE,RANDOM URINE 66.6 mg/dL (Not Establ.)
[2020-09-16 19:00] VITALS: BP 152/91
[2020-09-16] MEDS: ATORVASTATIN CALCIUM 20 MG TABLET PO SCH (22:02)
[2020-09-16 23:00] VITALS: BP 159/90
[2020-09-17 05:02] LABS: BASO % 1 % (0-3); EOS # 0.3 x10^3/uL (0.0-0.7); EOS % 5 % (0-3); HEMATOCRIT 26.4 % (36.0-47.0); LYMPH # 2.5 x10^3/uL (1.0-4.8); LYMPH % 34 % (24-48); MEAN CORPUSCULAR HEMOGLOBIN 28 pg (25-35); MEAN CORPUSCULAR HGB CONC 34 g/dL (31-37); MEAN CORPUSCULAR VOLUME 83 fL (79-100); MONO # 0.5 x10^3/uL (0.0-1.1); MONO % 7 % (0-9); NEUT % 55 % (31-73); PLATELET COUNT 286 x10^3/uL (140-400); RED CELL DISTRIBUTION WIDTH 15.5 % (11.5-14.5); WHITE BLOOD COUNT 7.4 x10^3/uL (4.0-11.0)
[2020-09-17 05:43] LABS: CALCIUM 8.6 mg/dL (8.5-10.1); CREATININE 5.6 mg/dL (0.6-1.0); GFR 9.3; MAGNESIUM 2.1 mg/dL (1.8-2.4); PHOSPHORUS 4.6 mg/dL (2.6-4.7); POTASSIUM 5.2 mmol/L (3.5-5.1)
[2020-09-17 07:00] VITALS: BP 134/82
[2020-09-17] MEDS: INSULIN LISPRO 300 UNITS/3 ML VIAL. SQ SCH ×3 (08:00→16:56)
--- NOTE | 2020-09-17 08:32 | RAD ---
EXAM: RENAL ULTRASOUND CLINICAL HISTORY: Acute renal failure COMPARISON: None available. TECHNIQUE: Ultrasound examination of the bilateral kidneys and urinary bladder was performed. FINDINGS: The right kidney measures 9.9 x 6.3 x 4.8 cm. The left kidney measures 10.2 x 4.5 x 1 cm. The kidneys are mildly echogenic. No cortical thinning. No hydronephrosis. There is a 1.8 cm simple right renal cyst and a 1.7 cm complicated left renal cyst. The urinary bladder is unremarkable. Mild hepatic stea tosis noted. IMPRESSION: 1. No hydronephrosis. 2. Echogenic appearance of the kidneys suggesting medical renal disease. 3. Bilateral renal cysts. 4. Hepatic steatosis. Electronically signed by: Marci Auguste MD (09/17/2020 8:30 AM) [id number]
[2020-09-17] MEDS: LINAGLIPTIN 5 MG TABLET PO SCH (08:34)
[2020-09-17] MEDS: IV 1/2 NORMAL SALINE 1,000 ML IV SCH ×2 (08:34→22:17)
[2020-09-17] MEDS: CETIRIZINE HCL 10 MG TABLET. PO SCH (08:34)
[2020-09-17 11:00] VITALS: BP 157/85
--- NOTE | 2020-09-17 12:03 | PDOC ---
DATE OF SERVICE DATE: 09/17/20 TIME: 12:02 SUBJECTIVE ROS No complaints, stable No N/V or SOB OBJECTIVE Vital Signs Vital Signs Date Time Temp Pulse Resp B/P (MAP) Pulse Ox O2 Delivery O2 Flow Rate FiO2 09/17/20 08:34 81 134/82 09/17/20 08:00 Room Air 09/17/20 07:00 98.4 18 97 98.4 I & 0 Intake and Output 09/17/20 07:00 Intake Total 360 ml Output Total 500 ml Balance -140 ml Intake Oral 360 ml Output Urine Total 500 ml # Voids 4 PHYSICAL EXAM Physical Exam GEN: No apparent distress. Alert and oriented HEENT: Normal cephalic, atraumatic, external auditory canals are patent NECK: Supple, no JVD, LUNGS: Clear to auscultation HEART: RRR, S!, S2 present. no rub ABDOMEN: Soft, nontender. Positive bowel sounds, no organomegaly, normal bowel sounds EXTREMITIES: Without clubbing, cyanosis, or edema. NEUROLOGIC: Normal speech and tone. A&O x 3, moves all extremities, no obvious focal deficits,has No Asterexis PSYCHIATRIC: Normal affect, normal mood. Stable SKIN: No ulcerations or rashes, good skin turgor, no jaundice No Lovell, No CVA or SP tenderness Vital Signs DIAGNOSIS/ASSESSMENT Assessment & Plan TONNY - ATN / , baseline renal function Unknown , UA No casts/hematuria , No UTI Renal US reviewed , Supportive care, IVF- maintain hydration, Strict I/O , avoid Nephrotoxins.Obtain records from PCP office. Discussed with RN CKD - Pt reports she was told by PCP about abnormal Kidney function for at least past few years, Nephrology not consuted until approx 1 week back 2/2 decline in renal function Denies UTI's or hematuria . No Hx of use of NSAID's. No new med changes US - mildly echogenic. No cortical thinning. No hydronephrosis. The urinary bladder is unremarkable . Renal Cysts - 1.8 cm simple right renal cyst and a 1.7 cm complicated left renal cyst.No FU recommended per Radiologist . Recommend Urology consult as OP as reported as complicated cyst HyperKalemia - Mild DM-? Hx of DR + COMMENT/RELEVANT DATA Meds Current Medications Medications (Trade) Dose Ordered Sig/Mauro Start Time Stop Time Status Last Admin Dose Admin Acetaminophen (Tylenol) 650 mg PRN Q4HRS PRN 09/16/20 09:00 Albuterol Sulfate (Ventolin Neb Soln) 2.5 mg PRN Q4HRS PRN 09/16/20 00:00 Amlodipine Besylate (Norvasc) 10 mg DAILY 09/16/20 09:00 09/17/20 08:34 10 MG Atorvastatin Calcium (Lipitor) 20 mg HS 09/16/20 21:00 09/16/20 22:02 20 MG Cetirizine HCl (ZyrTEC) 10 mg DAILY 09/16/20 09:00 09/17/20 08:34 10 MG Dextrose (Dextrose 50%-Water Syringe) 12.5 gm PRN Q15MIN PRN 09/16/20 09:00 Docusate Sodium (Colace) 100 mg PRN DAILY PRN 09/16/20 09:00 Glycerin/ Hypromellose/ Polyethylene (Artificial Tears) 1 drop DAILY PRN 09/16/20 13:00 09/16/20 12:53 DC Insulin Human Lispro (HumaLOG) 0-7 UNITS TIDWMEALS 09/16/20 12:00 Linagliptin (Tradjenta) 5 mg DAILY 09/16/20 09:00 09/17/20 08:34 5 MG Losartan Potassium (Cozaar) 100 mg DAILY 09/16/20 09:00 09/16/20 15:33 DC 09/16/20 08:57 100 MG Non-Formulary Medication (Refresh Eye Drops) 1 ea PRN DAILY PRN 09/16/20 13:00 Ondansetron HCl (Zofran) 4 mg PRN Q6HRS PRN 09/16/20 09:00 09/16/20 17:31 4 MG Prochlorperazine Edisylate (Compazine) 10 mg PRN Q6HRS PRN 09/16/20 09:00 Sennosides (Senna) 17.2 mg PRN BID PRN 09/16/20 09:00 Sodium Chloride 1,000 ml @ 75 mls/hr [id number] 09/17/20 08:00 09/17/20 08:34 75 MLS/HR Thiamine HCl 100 mg/Dextrose 51 ml @ 102 mls/hr DAILY 09/16/20 10:00 09/17/20 07:58 DC 09/16/20 09:42 102 MLS/HR Lab Laboratory Tests Test 09/16/20 17:09 09/16/20 18:15 09/16/20 20:14 09/17/20 04:30 Glucose (Fingerstick) 92 mg/dL (70-99) 150 mg/dL (70-99) Urine Random Creatinine 66.6 mg/dL (Not Establ.) Urine Random Total Protein 272.5 mg/dL (Not Establ.) White Blood Count 7.4 x10^3/uL (4.0-11.0) Red Blood Count 3.20 x10^6/uL (3.50-5.40) Hemoglobin 9.0 g/dL (12.0-15.5) Hematocrit 26.4 % (36.0-47.0) Mean Corpuscular Volume 83 fL (79-100) Mean Corpuscular Hemoglobin 28 pg (25-35) Mean Corpuscular Hemoglobin Concent 34 g/dL (31-37) Red Cell Distribution Width 15.5 % (11.5-14.5) Platelet Count 286 x10^3/uL (140-400) Neutrophils (%) (Auto) 55 % (31-73) Lymphocytes (%) (Auto) 34 % (24-48) Monocytes (%) (Auto) 7 % (0-9) Eosinophils (%) (Auto) 5 % (0-3) Basophils (%) (Auto) 1 % (0-3) Neutrophils # (Auto) 4.0 x10^3/uL (1.8-7.7) Lymphocytes # (Auto) 2.5 x10^3/uL (1.0-4.8) Monocytes # (Auto) 0.5 x10^3/uL (0.0-1.1) Eosinophils # (Auto) 0.3 x10^3/uL (0.0-0.7) Basophils # (Auto) 0.0 x10^3/uL (0.0-0.2) Sodium Level 142 mmol/L (136-145) Potassium Level 5.2 mmol/L (3.5-5.1) Chloride Level 112 mmol/L (98-107) Carbon Dioxide Level 18 mmol/L (21-32) Anion Gap 12 (6-14) Blood Urea Nitrogen 46 mg/dL (7-20) Creatinine 5.6 mg/dL (0.6-1.0) Estimated GFR (Cockcroft-Gault) 9.3 Glucose Level 99 mg/dL (70-99) Calcium Level 8.6 mg/dL (8.5-10.1) Phosphorus Level 4.6 mg/dL (2.6-4.7) Magnesium Level 2.1 mg/dL (1.8-2.4) Test 09/17/20 07:40 09/17/20 11:55 Glucose (Fingerstick) 90 mg/dL (70-99) 112 mg/dL (70-99) Results All relevant outside records, renal labs, imaging studies, telemetry/EKG's were reviewed. Justicifation of Admission Dx: Justifications for Admission: Justification of Admission Dx: N/A LIDA FRIEDMAN MD Sep 17, 2020 12:02
--- NOTE | 2020-09-17 14:38 | PDOC ---
[employer] PROGRESS NOTE Date of Service DOS: DATE: 09/17/20 TIME: 14:37 Chief Complaint Chief Complaint Assessment/Plan TONNY due to vasomotor nephropathy, possible diabetic nephropathy Mild hyperkalemia History of diabetes mellitus type 2 Bilateral renal cyst Nephrology consult Pending renal ultrasound Pending urine studies Avoid nephrotoxic agents, such as losartan in this case Heparin for DVT prophylaxis ADA diet Full code Discussed with RN and SW Disposition inpatient management as above Surrogate decision maker is History of Present Illness History of Present Illness 60 year old female, accompanied by her , who presents to the emergency department with reports of abnormal labs. Patient states she was notified by her primary care doctor that her kidneys were only functioning at 7% and she needed to go to the ER for further evaluation. Patient denies any chest pain, palpitations, dizziness, syncope, abdominal pain, nausea, vomiting, diarrhea, body aches, fatigue, back pain, rash, dysuria, hematuria, or increased urinary frequency. Patient states she has not been urinating as much but she states she has been staying home so she has not been drinking as much fluid. She currently denies any complaints or concerns. She currently denies any pain. Patient states that her doctor faxed over her labs that were drawn on 08 September. Radhan states she knows she has retinopathy. She knew her kidney fxn was bad but did not know that it had worsened 09/17/2020 No major events overnight. Patient's creatinine somewhat improved. No complaints today. No concerns from nursing. Patient's chart, labs, images were reviewed and discussed with RN Vitals/I&O Vitals/I&O: Vital Signs Date Time Temp Pulse Resp B/P (MAP) Pulse Ox O2 Delivery O2 Flow Rate FiO2 09/17/20 11:00 98.3 88 18 157/85 (109) 99 Room Air 98.3 I & O 09/16/20 09/16/20 09/17/20 15:00 23:00 07:00 Intake Total 120 ml 240 ml Output Total 500 ml Balance 120 ml -260 ml Physical Exam General: Alert, Oriented X3, Cooperative Heart: Regular rate Lungs: Clear Abdomen: Normal bowel sounds Extremities: No clubbing, No edema Skin: No significant lesion Labs Labs: Laboratory Tests Test 09/16/20 17:09 09/16/20 18:15 09/16/20 20:14 09/17/20 04:30 Glucose (Fingerstick) 92 mg/dL (70-99) 150 mg/dL (70-99) Urine Random Creatinine 66.6 mg/dL (Not Establ.) Urine Random Total Protein 272.5 mg/dL (Not Establ.) White Blood Count 7.4 x10^3/uL (4.0-11.0) Red Blood Count 3.20 x10^6/uL (3.50-5.40) Hemoglobin 9.0 g/dL (12.0-15.5) Hematocrit 26.4 % (36.0-47.0) Mean Corpuscular Volume 83 fL (79-100) Mean Corpuscular Hemoglobin 28 pg (25-35) Mean Corpuscular Hemoglobin Concent 34 g/dL (31-37) Red Cell Distribution Width 15.5 % (11.5-14.5) Platelet Count 286 x10^3/uL (140-400) Neutrophils (%) (Auto) 55 % (31-73) Lymphocytes (%) (Auto) 34 % (24-48) Monocytes (%) (Auto) 7 % (0-9) Eosinophils (%) (Auto) 5 % (0-3) Basophils (%) (Auto) 1 % (0-3) Neutrophils # (Auto) 4.0 x10^3/uL (1.8-7.7) Lymphocytes # (Auto) 2.5 x10^3/uL (1.0-4.8) Monocytes # (Auto) 0.5 x10^3/uL (0.0-1.1) Eosinophils # (Auto) 0.3 x10^3/uL (0.0-0.7) Basophils # (Auto) 0.0 x10^3/uL (0.0-0.2) Sodium Level 142 mmol/L (136-145) Potassium Level 5.2 mmol/L (3.5-5.1) Chloride Level 112 mmol/L (98-107) Carbon Dioxide Level 18 mmol/L (21-32) Anion Gap 12 (6-14) Blood Urea Nitrogen 46 mg/dL (7-20) Creatinine 5.6 mg/dL (0.6-1.0) Estimated GFR (Cockcroft-Gault) 9.3 Glucose Level 99 mg/dL (70-99) Calcium Level 8.6 mg/dL (8.5-10.1) Phosphorus Level 4.6 mg/dL (2.6-4.7) Magnesium Level 2.1 mg/dL (1.8-2.4) Test 09/17/20 07:40 09/17/20 11:55 Glucose (Fingerstick) 90 mg/dL (70-99) 112 mg/dL (70-99) Assessment and Plan Assessmemt and Plan Problems Medical Problems: (1) Acute on chronic renal failure Status: Acute Comment Review of Relevant I have reviewed the following items gabbie (where applicable) has been applied. Medications: Current Medications Medications (Trade) Dose Ordered Sig/Mauro Route PRN Reason Start Time Stop Time Status Last Admin Dose Admin Atorvastatin Calcium (Lipitor) 20 mg HS PO 09/16/20 21:00 09/16/20 22:02 Sodium Chloride 1,000 ml @ 100 mls/hr Q10H IV 09/16/20 15:45 09/17/20 07:58 DC 09/16/20 22:23 Sodium Chloride 1,000 ml @ 75 mls/hr [id number] IV 09/17/20 08:00 09/17/20 08:34 Justifications for Admission Other Justification Acute renal failure KILEY ERWIN MD Sep 17, 2020 14:38
[2020-09-17 15:00] VITALS: BP 133/77
[2020-09-17 19:00] VITALS: BP 156/90
[2020-09-17] MEDS: ATORVASTATIN CALCIUM 20 MG TABLET PO SCH (22:15)
[2020-09-17 23:00] VITALS: BP 102/80
[2020-09-18 01:11] LABS: HEMOGLOBIN A1C 5.1 % (4.8-5.6)
[2020-09-18 07:30] VITALS: BP 151/86
[2020-09-18] MEDS: INSULIN LISPRO 300 UNITS/3 ML VIAL. SQ SCH ×3 (07:58→17:00)
[2020-09-18 08:22] LABS: CALCIUM 8.9 mg/dL (8.5-10.1); CREATININE 5.3 mg/dL (0.6-1.0); GFR 9.9; POTASSIUM 4.9 mmol/L (3.5-5.1)
[2020-09-18] MEDS: CETIRIZINE HCL 10 MG TABLET. PO SCH (08:49)
[2020-09-18] MEDS: LINAGLIPTIN 5 MG TABLET PO SCH (08:49)
--- NOTE | 2020-09-18 09:39 | PDOC ---
DATE OF SERVICE DATE: 09/18/20 TIME: 09:38 SUBJECTIVE ROS No complaints, stable No N/V or SOB OBJECTIVE Vital Signs Vital Signs Date Time Temp Pulse Resp B/P (MAP) Pulse Ox O2 Delivery O2 Flow Rate FiO2 09/18/20 08:59 79 151/86 09/18/20 08:00 Room Air 09/18/20 07:30 98.5 18 97 98.5 I & 0 Intake and Output 09/18/20 07:00 Output Total 4050 ml Balance -4050 ml Output Urine Total 4050 ml PHYSICAL EXAM Physical Exam GEN: No apparent distress. Alert and oriented HEENT: Normal cephalic, atraumatic, external auditory canals are patent NECK: Supple, no JVD, LUNGS: Clear to auscultation HEART: RRR, S!, S2 present. no rub ABDOMEN: Soft, nontender. Positive bowel sounds, no organomegaly, normal bowel sounds EXTREMITIES: Without clubbing, cyanosis, or edema. NEUROLOGIC: Normal speech and tone. A&O x 3, moves all extremities, no obvious focal deficits,has No Asterexis PSYCHIATRIC: Normal affect, normal mood. Stable SKIN: No ulcerations or rashes, good skin turgor, no jaundice No Lovell, No CVA or SP tenderness DIAGNOSIS/ASSESSMENT Assessment & Plan TONNY - ATN / , baseline renal function Unknown Renal US reviewed , Supportive care, IVF- maintain hydration, Strict I/O , avoid Nephrotoxins.Obtain records from PCP office. Discussed with RN CKD - Pt reports she was told by PCP about abnormal Kidney function for at least past few years, Nephrology not consuted until approx 1 week back 2/2 decline in renal function Denies UTI's or hematuria . No Hx of use of NSAID's. No new med changes US - mildly echogenic. No cortical thinning. No hydronephrosis. The urinary bladder is unremarkable . 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 Recommend Urology consult as OP as reported as complicated cyst HyperKalemia - Mild DM-? Hx of DR + COMMENT/RELEVANT DATA Meds Current Medications Medications (Trade) Dose Ordered Sig/Mauro Start Time Stop Time Status Last Admin Dose Admin Acetaminophen (Tylenol) 650 mg PRN Q4HRS PRN 09/16/20 09:00 Albuterol Sulfate (Ventolin Neb Soln) 2.5 mg PRN Q4HRS PRN 09/16/20 00:00 Amlodipine Besylate (Norvasc) 10 mg DAILY 09/16/20 09:00 09/18/20 08:59 10 MG Atorvastatin Calcium (Lipitor) 20 mg HS 09/16/20 21:00 09/17/20 22:15 20 MG Cetirizine HCl (ZyrTEC) 10 mg DAILY 09/16/20 09:00 09/18/20 08:49 10 MG Dextrose (Dextrose 50%-Water Syringe) 12.5 gm PRN Q15MIN PRN 09/16/20 09:00 Docusate Sodium (Colace) 100 mg PRN DAILY PRN 09/16/20 09:00 Glycerin/ Hypromellose/ Polyethylene (Artificial Tears) 1 drop DAILY PRN 09/16/20 13:00 09/16/20 12:53 DC Insulin Human Lispro (HumaLOG) 0-7 UNITS TIDWMEALS 09/16/20 12:00 Linagliptin (Tradjenta) 5 mg DAILY 09/16/20 09:00 09/18/20 08:49 5 MG Losartan Potassium (Cozaar) 100 mg DAILY 09/16/20 09:00 09/16/20 15:33 DC 09/16/20 08:57 100 MG Non-Formulary Medication (Refresh Eye Drops) 1 ea PRN DAILY PRN 09/16/20 13:00 Ondansetron HCl (Zofran) 4 mg PRN Q6HRS PRN 09/16/20 09:00 09/16/20 17:31 4 MG Prochlorperazine Edisylate (Compazine) 10 mg PRN Q6HRS PRN 09/16/20 09:00 Sennosides (Senna) 17.2 mg PRN BID PRN 09/16/20 09:00 Sodium Chloride 1,000 ml @ 75 mls/hr [id number] 09/17/20 08:00 09/17/20 22:17 75 MLS/HR Thiamine HCl 100 mg/Dextrose 51 ml @ 102 mls/hr DAILY 09/16/20 10:00 09/17/20 07:58 DC 09/16/20 09:42 102 MLS/HR Lab Laboratory Tests Test 09/17/20 11:55 09/17/20 16:53 09/17/20 20:19 09/18/20 07:35 Glucose (Fingerstick) 112 mg/dL (70-99) 91 mg/dL (70-99) 139 mg/dL (70-99) Sodium Level 143 mmol/L (136-145) Potassium Level 4.9 mmol/L (3.5-5.1) Chloride Level 112 mmol/L (98-107) Carbon Dioxide Level 19 mmol/L (21-32) Anion Gap 12 (6-14) Blood Urea Nitrogen 45 mg/dL (7-20) Creatinine 5.3 mg/dL (0.6-1.0) Estimated GFR (Cockcroft-Gault) 9.9 Glucose Level 87 mg/dL (70-99) Calcium Level 8.9 mg/dL (8.5-10.1) Test 09/18/20 07:51 Glucose (Fingerstick) 94 mg/dL (70-99) Results All relevant outside records, renal labs, imaging studies, telemetry/EKG's were reviewed. Justicifation of Admission Dx: Justifications for Admission: Justification of Admission Dx: N/A LIDA FRIEDMAN MD Sep 18, 2020 09:39
[2020-09-18 11:36] VITALS: BP 139/88
[2020-09-18] MEDS: IV 1/2 NORMAL SALINE 1,000 ML IV SCH ×2 (11:55→22:04)
[2020-09-18 15:17] VITALS: BP 155/81
--- NOTE | 2020-09-18 16:14 | PDOC ---
[facility] PROGRESS NOTE Date of Service DOS: DATE: 09/18/20 TIME: 16:12 Chief Complaint Chief Complaint Assessment/Plan TONNY due to vasomotor nephropathy, possible diabetic nephropathy Mild hyperkalemia History of diabetes mellitus type 2 Bilateral renal cyst Nephrology consult Pending renal ultrasound Pending urine studies Avoid nephrotoxic agents, such as losartan in this case Heparin for DVT prophylaxis ADA diet Full code Discussed with RN and SW Disposition inpatient management as above Surrogate decision maker is History of Present Illness History of Present Illness 60 year old female, accompanied by her , who presents to the emergency department with reports of abnormal labs. Patient states she was notified by her primary care doctor that her kidneys were only functioning at 7% and she needed to go to the ER for further evaluation. Patient denies any chest pain, palpitations, dizziness, syncope, abdominal pain, nausea, vomiting, diarrhea, body aches, fatigue, back pain, rash, dysuria, hematuria, or increased urinary frequency. Patient states she has not been urinating as much but she states she has been staying home so she has not been drinking as much fluid. She currently denies any complaints or concerns. She currently denies any pain. Patient states that her doctor faxed over her labs that were drawn on 08 September. Pateitn states she knows she has retinopathy. She knew her kidney fxn was bad but did not know that it had worsened 09/17/2020 No major events overnight. Patient's creatinine somewhat improved. No complaints today. No concerns from nursing. Patient's chart, labs, images were reviewed and discussed with RN 09/18/20 Patient seen and assessed at bedside Creatinine continues to improve we will continue to monitor this daily Otherwise no major complaints per the patient Will need outpatient nephro and urology follow-up Plan of care discussed with bedside nurse Possible discharge tomorrow Vitals/I&O Vitals/I&O: Vital Signs Date Time Temp Pulse Resp B/P (MAP) Pulse Ox O2 Delivery O2 Flow Rate FiO2 09/18/20 15:17 98.4 86 18 155/81 (105) 96 Room Air 98.4 I & O 09/17/20 09/17/20 09/18/20 15:00 23:00 07:00 Output Total 1000 ml 1550 ml 1500 ml Balance -1000 ml -1550 ml -1500 ml Physical Exam General: Alert, Oriented X3, Cooperative Heart: Regular rate Lungs: Clear Abdomen: Normal bowel sounds Extremities: No clubbing, No edema Skin: No significant lesion Labs Labs: Laboratory Tests Test 09/17/20 16:53 09/17/20 20:19 09/18/20 07:35 09/18/20 07:51 Glucose (Fingerstick) 91 mg/dL (70-99) 139 mg/dL (70-99) 94 mg/dL (70-99) Sodium Level 143 mmol/L (136-145) Potassium Level 4.9 mmol/L (3.5-5.1) Chloride Level 112 mmol/L (98-107) Carbon Dioxide Level 19 mmol/L (21-32) Anion Gap 12 (6-14) Blood Urea Nitrogen 45 mg/dL (7-20) Creatinine 5.3 mg/dL (0.6-1.0) Estimated GFR (Cockcroft-Gault) 9.9 Glucose Level 87 mg/dL (70-99) Calcium Level 8.9 mg/dL (8.5-10.1) Test 09/18/20 11:56 Glucose (Fingerstick) 117 mg/dL (70-99) Assessment and Plan Assessmemt and Plan Problems Medical Problems: (1) Acute on chronic renal failure Status: Acute Comment Review of Relevant I have reviewed the following items gabbie (where applicable) has been applied. Justifications for Admission Other Justification Acute renal failure LILIAM SNYDER MD Sep 18, 2020 16:13
[2020-09-18 19:00] VITALS: BP 146/85
[2020-09-18] MEDS: ATORVASTATIN CALCIUM 20 MG TABLET PO SCH (22:04)
[2020-09-18 23:00] VITALS: BP 143/83
[2020-09-19 03:00] VITALS: BP 142/87
[2020-09-19 07:30] VITALS: BP 144/83
[2020-09-19] MEDS: INSULIN LISPRO 300 UNITS/3 ML VIAL. SQ SCH ×2 (07:37→12:00)
[2020-09-19] MEDS: LINAGLIPTIN 5 MG TABLET PO SCH (08:58)
[2020-09-19] MEDS: CETIRIZINE HCL 10 MG TABLET. PO SCH (08:59)
[2020-09-19 09:57] LABS: CALCIUM 8.5 mg/dL (8.5-10.1); CREATININE 5.2 mg/dL (0.6-1.0); GFR 10.1
[2020-09-19 11:00] VITALS: BP 151/91
--- NOTE | 2020-09-19 12:01 | PDOC ---
DATE OF SERVICE DATE: 09/19/20 TIME: 11:55 SUBJECTIVE ROS No complaints, stable No N/V or SOB OBJECTIVE Vital Signs Vital Signs Date Time Temp Pulse Resp B/P (MAP) Pulse Ox O2 Delivery O2 Flow Rate FiO2 09/19/20 08:59 80 144/83 09/19/20 08:00 Room Air 09/19/20 07:30 98.4 18 99 98.4 I & 0 Intake and Output 09/19/20 07:00 Intake Total 700 ml Output Total 1400 ml Balance -700 ml Intake Oral 700 ml Output Urine Total 1400 ml PHYSICAL EXAM Physical Exam GEN: No apparent distress. Alert and oriented HEENT: Normal cephalic, atraumatic, external auditory canals are patent NECK: Supple, no JVD, LUNGS: Clear to auscultation HEART: RRR, S!, S2 present. no rub ABDOMEN: Soft, nontender. Positive bowel sounds, no organomegaly, normal bowel sounds EXTREMITIES: Without clubbing, cyanosis, or edema. NEUROLOGIC: Normal speech and tone. A&O x 3, moves all extremities, no obvious focal deficits,has No Asterexis PSYCHIATRIC: Normal affect, normal mood. Stable SKIN: No ulcerations or rashes, good skin turgor, no jaundice No Lovell, No CVA or SP tenderness DIAGNOSIS/ASSESSMENT Assessment & Plan TONNY - ATN / , baseline renal function Unknown Renal US reviewed , very slow improvement in renal function Supportive care, Strict I/O , avoid Nephrotoxins. No Uremic symptoms or signs CKD stage 4 - Cr in dec 2019 was 3.1 with eGFR 16 --> June 5.0 , egfr 9 - albs feom PCP office. 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 No Hx of use of NSAID's. No new med changes US - mildly echogenic. No cortical thinning. No hydronephrosis. The urinary bladder is unremarkable Had a long discussion with patient about Kidney funtion, modalities of dialysis, Transplant etc. No family in room currently . Spent > 45 mins discussing . 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 Recommend Urology consult as OP as reported as complicated cyst HyperKalemia - resolved DM-? Hx of DR + COMMENT/RELEVANT DATA Meds Current Medications Medications (Trade) Dose Ordered Sig/Mauro Start Time Stop Time Status Last Admin Dose Admin Acetaminophen (Tylenol) 650 mg PRN Q4HRS PRN 09/16/20 09:00 Albuterol Sulfate (Ventolin Neb Soln) 2.5 mg PRN Q4HRS PRN 09/16/20 00:00 Amlodipine Besylate (Norvasc) 10 mg DAILY 09/16/20 09:00 09/19/20 08:59 10 MG Atorvastatin Calcium (Lipitor) 20 mg HS 09/16/20 21:00 09/18/20 22:04 20 MG Cetirizine HCl (ZyrTEC) 10 mg DAILY 09/16/20 09:00 09/19/20 08:59 10 MG Dextrose (Dextrose 50%-Water Syringe) 12.5 gm PRN Q15MIN PRN 09/16/20 09:00 Docusate Sodium (Colace) 100 mg PRN DAILY PRN 09/16/20 09:00 Glycerin/ Hypromellose/ Polyethylene (Artificial Tears) 1 drop DAILY PRN 09/16/20 13:00 09/16/20 12:53 DC Insulin Human Lispro (HumaLOG) 0-7 UNITS TIDWMEALS 09/16/20 12:00 Linagliptin (Tradjenta) 5 mg DAILY 09/16/20 09:00 09/19/20 08:58 5 MG Losartan Potassium (Cozaar) 100 mg DAILY 09/16/20 09:00 09/16/20 15:33 DC 09/16/20 08:57 100 MG Non-Formulary Medication (Refresh Eye Drops) 1 ea PRN DAILY PRN 09/16/20 13:00 Ondansetron HCl (Zofran) 4 mg PRN Q6HRS PRN 09/16/20 09:00 09/16/20 17:31 4 MG Prochlorperazine Edisylate (Compazine) 10 mg PRN Q6HRS PRN 09/16/20 09:00 Sennosides (Senna) 17.2 mg PRN BID PRN 09/16/20 09:00 Sodium Chloride 1,000 ml @ 75 mls/hr [id number] 09/17/20 08:00 09/18/20 22:04 75 MLS/HR Thiamine HCl 100 mg/Dextrose 51 ml @ 102 mls/hr DAILY 09/16/20 10:00 09/17/20 07:58 DC 09/16/20 09:42 102 MLS/HR Lab Laboratory Tests Test 09/18/20 11:56 09/18/20 16:37 09/18/20 20:43 09/19/20 07:00 Glucose (Fingerstick) 117 mg/dL (70-99) 148 mg/dL (70-99) 213 mg/dL (70-99) Sodium Level 142 mmol/L (136-145) Potassium Level 5.0 mmol/L (3.5-5.1) Chloride Level 112 mmol/L (98-107) Carbon Dioxide Level 20 mmol/L (21-32) Anion Gap 10 (6-14) Blood Urea Nitrogen 43 mg/dL (7-20) Creatinine 5.2 mg/dL (0.6-1.0) Estimated GFR (Cockcroft-Gault) 10.1 Glucose Level 84 mg/dL (70-99) Calcium Level 8.5 mg/dL (8.5-10.1) Iron Level 47 ug/dL (50-170) Total Iron Binding Capacity 190 ug/dL (250-450) Iron Saturation 25 % (15-34) Ferritin 100 ng/mL (8-252) Test 09/19/20 07:32 09/19/20 11:38 Glucose (Fingerstick) 88 mg/dL (70-99) 113 mg/dL (70-99) Results All relevant outside records, renal labs, imaging studies, telemetry/EKG's were reviewed. Justicifation of Admission Dx: Justifications for Admission: Justification of Admission Dx: N/A LIDA FRIEDMAN MD Sep 19, 2020 12:00
[2020-09-19 12:15] LABS: ALBUM 2.9 g/dL (2.9-4.4); ALPHA 1 0.2 g/dL (0.0-0.4); ALPHA 2 0.8 g/dL (0.4-1.0); BETA 0.9 g/dL (0.7-1.3); GAMMA 1.1 g/dL (0.4-1.8); PROTEIN TOTAL 5.8 g/dL (6.0-8.5)
--- NOTE | 2020-09-19 12:25 | PDOC ---
[facility] PROGRESS NOTE Date of Service DOS: DATE: 09/19/20 TIME: 12:23 Chief Complaint Chief Complaint Assessment/Plan TONNY due to vasomotor nephropathy, possible diabetic nephropathy Mild hyperkalemia History of diabetes mellitus type 2 Bilateral renal cyst Nephrology consult Pending renal ultrasound Pending urine studies Avoid nephrotoxic agents, such as losartan in this case Heparin for DVT prophylaxis ADA diet Full code Discussed with RN and SW Disposition inpatient management as above Surrogate decision maker is History of Present Illness History of Present Illness 60 year old female, accompanied by her , who presents to the emergency department with reports of abnormal labs. Patient states she was notified by her primary care doctor that her kidneys were only functioning at 7% and she needed to go to the ER for further evaluation. Patient denies any chest pain, palpitations, dizziness, syncope, abdominal pain, nausea, vomiting, diarrhea, body aches, fatigue, back pain, rash, dysuria, hematuria, or increased urinary frequency. Patient states she has not been urinating as much but she states she has been staying home so she has not been drinking as much fluid. She currently denies any complaints or concerns. She currently denies any pain. Patient states that her doctor faxed over her labs that were drawn on 08 September. Pateitn states she knows she has retinopathy. She knew her kidney fxn was bad but did not know that it had worsened 09/17/2020 No major events overnight. Patient's creatinine somewhat improved. No complaints today. No concerns from nursing. Patient's chart, labs, images were reviewed and discussed with RN 09/18/20 Patient seen and assessed at bedside Creatinine continues to improve we will continue to monitor this daily Otherwise no major complaints per the patient Will need outpatient nephro and urology follow-up Plan of care discussed with bedside nurse Possible discharge tomorrow 09/19/20 Patient seen and examined at bedside Renal function slowly improving Nephrology following patient who are agreeable for discharge today patient will need follow-up labs Patient agreeable to this plan Discharging home today Vitals/I&O Vitals/I&O: Vital Signs Date Time Temp Pulse Resp B/P (MAP) Pulse Ox O2 Delivery O2 Flow Rate FiO2 09/19/20 08:59 80 144/83 09/19/20 08:00 Room Air 09/19/20 07:30 98.4 18 99 98.4 I & O 09/18/20 09/18/20 09/19/20 14:59 22:59 06:59 Intake Total 500 ml 200 ml Output Total 1100 ml 300 ml Balance 500 ml -900 ml -300 ml Physical Exam General: Alert, Oriented X3, Cooperative Heart: Regular rate, Normal S1, Normal S2 Lungs: Clear Abdomen: Normal bowel sounds Extremities: No clubbing, No edema Skin: No rashes, No significant lesion Labs Labs: Laboratory Tests Test 09/18/20 16:37 09/18/20 20:43 09/19/20 07:00 09/19/20 07:32 Glucose (Fingerstick) 148 mg/dL (70-99) 213 mg/dL (70-99) 88 mg/dL (70-99) Sodium Level 142 mmol/L (136-145) Potassium Level 5.0 mmol/L (3.5-5.1) Chloride Level 112 mmol/L (98-107) Carbon Dioxide Level 20 mmol/L (21-32) Anion Gap 10 (6-14) Blood Urea Nitrogen 43 mg/dL (7-20) Creatinine 5.2 mg/dL (0.6-1.0) Estimated GFR (Cockcroft-Gault) 10.1 Glucose Level 84 mg/dL (70-99) Calcium Level 8.5 mg/dL (8.5-10.1) Iron Level 47 ug/dL (50-170) Total Iron Binding Capacity 190 ug/dL (250-450) Iron Saturation 25 % (15-34) Ferritin 100 ng/mL (8-252) Test 09/19/20 11:38 Glucose (Fingerstick) 113 mg/dL (70-99) Review of Systems Review of Systems: No acute complaints Assessment and Plan Assessmemt and Plan Problems Medical Problems: (1) Acute on chronic renal failure Status: Acute Comment Review of Relevant I have reviewed the following items gabbie (where applicable) has been applied. Justifications for Admission Other Justification Acute renal failure LILIAM SNYDER MD Sep 19, 2020 12:25
--- NOTE | 2020-09-19 12:37 | PDOC3 ---
[facility]-Discharge Summary Date of Admission: Date of Admission: Sep 16, 2020 Date of Discharge: Date of Discharge: Sep 19, 2020 Admission Diagnosis: Admitting Diagnosis: TONNY on CKD Discharge Diagnosis: Discharge Diagnosis: TONNY on CKD Consults: Consults: Nephrology Hospital Course: Hospital Course: wvef Complaint Assessment/Plan TONNY due to vasomotor nephropathy, possible diabetic nephropathy Mild hyperkalemia History of diabetes mellitus type 2 Bilateral renal cyst Nephrology consult Pending renal ultrasound Pending urine studies Avoid nephrotoxic agents, such as losartan in this case Heparin for DVT prophylaxis ADA diet Full code Discussed with RN and SW Disposition inpatient management as above Surrogate decision maker is History of Present Illness History of Present Illness 60 year old female, accompanied by her , who presents to the emergency department with reports of abnormal labs. Patient states she was notified by her primary care doctor that her kidneys were only functioning at 7% and she needed to go to the ER for further evaluation. Patient denies any chest pain, palpitations, dizziness, syncope, abdominal pain, nausea, vomiting, diarrhea, body aches, fatigue, back pain, rash, dysuria, hematuria, or increased urinary frequency. Patient states she has not been urinating as much but she states she has been staying home so she has not been drinking as much fluid. She currently denies any complaints or concerns. She currently denies any pain. Patient states that her doctor faxed over her labs that were drawn on 08 September. Radhan states she knows she has retinopathy. She knew her kidney fxn was bad but did not know that it had worsened 09/17/2020 No major events overnight. Patient's creatinine somewhat improved. No complaints today. No concerns from nursing. Patient's chart, labs, images were reviewed and discussed with RN 09/18/20 Patient seen and assessed at bedside Creatinine continues to improve we will continue to monitor this daily Otherwise no major complaints per the patient Will need outpatient nephro and urology follow-up Plan of care discussed with bedside nurse Possible discharge tomorrow 09/19/20 Patient seen and examined at bedside Renal function slowly improving Nephrology following patient Discharge home Follow up labs in clinic Disposition: Disposition/Orders: D/C to Home Activity: Activity: Resume previous activity Diet: Diet: Renal Medications: Home Meds Reported Medications Carboxymethylcellulos/Glycerin (REFRESH OPTIVE EYE DROPS) 15 Ml Drops, 1 DROP EACHEYE DAILY for dryeyes, #30 ML 6 Refills 09/16/20 Sitagliptin Phosphate (JANUVIA) 50 Mg Tablet, 25 MG PO DAILY for DM, TAB 09/15/20 Cetirizine Hcl (CETIRIZINE HCL) 10 Mg Tablet, 10 MG PO DAILY for hay fever, TAB 09/15/20 Atorvastatin Calcium (ATORVASTATIN CALCIUM) 20 Mg Tablet, 20 MG PO HS for FOR CHOLESTEROL, #30 TAB 0 Refills 09/15/20 Amlodipine Besylate (AMLODIPINE BESYLATE) 10 Mg Tablet, 10 MG PO DAILY for HTN, TAB 09/15/20 Albuterol Sulfate (PROAIR HFA INHALER) 8.5 Gm Hfa.aer.ad, 2 PUFF IH PRN Q4-6HRS PRN for wheezing for 21 Days, #1 INHALER 0 Refills 09/15/20 Discontinued Reported Medications Losartan Potassium (LOSARTAN POTASSIUM) 100 Mg Tablet, 100 MG PO DAILY for HYPERTENSION, TAB 09/15/20 Discontinued Scripts Doxycycline Hyclate (DOXYCYCLINE HYCLATE) 100 Mg Capsule, 1 CAP PO BID, #20 CAP Prov:SHEA VILLAFANA MD 03/19/17 Scheduled Amlodipine Besylate (Amlodipine Besylate), 10 MG PO DAILY, (Reported) Atorvastatin Calcium (Atorvastatin Calcium), 20 MG PO HS, (Reported) Carboxymethylcellulos/Glycerin (Refresh Optive Eye Drops), 1 DROP EACHEYE DAILY, (Reported) Cetirizine Hcl (Cetirizine Hcl), 10 MG PO DAILY, (Reported) Sitagliptin Phosphate (Januvia), 25 MG PO DAILY, (Reported) Scheduled PRN Albuterol Sulfate (Proair Hfa Inhaler), 2 PUFF IH PRN Q4-6HRS PRN for wheezing, (Reported) Discontinued Medications Doxycycline Hyclate (Doxycycline Hyclate), 1 CAP PO BID Losartan Potassium (Losartan Potassium), 100 MG PO DAILY, (Reported) Justicifation of Admission Dx: Justifications for Admission: Justification of Admission Dx: N/A LILIAM SNYDER MD Sep 19, 2020 12:37
[2020-09-19 16:11] LABS: KAPPA FREE 126.7 mg/L (3.3-19.4); KAPPA LAMBDA RATIO 1.42 (0.26-1.65); LAMBDA FREE 89.1 mg/L (5.7-26.3)
== END 2020-09-19 15:03 | disposition home or self-care (01) | DRG 684 ==
LOC: ER 15:52 → 6 SOUTH 18:05
PROVIDERS: ADMIT Internal Medicine; ATTEND Internal Medicine
DX: N17.0 Acute kidney failure with tubular necrosis (principal); E11.21 Type 2 diabetes mellitus with diabetic nephropathy; Z88.2 Allergy status to sulfonamides; Z88.8 Allergy status to other drugs, medicaments and biological substances; E11.22 Type 2 diabetes mellitus with diabetic chronic kidney disease; N28.1 Cyst of kidney, acquired; N18.9 Chronic kidney disease, unspecified; E11.319 Type 2 diabetes mellitus with unspecified diabetic retinopathy without macular edema; E87.5 Hyperkalemia; R80.9 Proteinuria, unspecified; Z88.5 Allergy status to narcotic agent; I12.9 Hypertensive chronic kidney disease with stage 1 through stage 4 chronic kidney disease, or unspecified chronic kidney disease
CPT/HCPCS: 36415; 71045; 76770; 80048; 80053; 81001; 82043; 82553; 82570; 82728; 82962; 83036; 83520; 83540; 83550; 83690; 83735; 83935; 84100; 84156; 84165; 84300; 84484; 85025; 87077; 87086; 93005; 96360; 96361; J1815; J2405; J3411; J3490; J7030; J7060; 99285-25; G0378